=== PATIENT | female | born 1990 | race Caucasian/White ===

== ENCOUNTER → 2021-03-05 11:46 | Outpatient (CLI) | payer OTHER, MEDICAID, SELFPAY ==
[2021-03-05 10:48] VITALS: BMI 32.8
[2021-03-05 12:49] LABS: Absolute Neutrophil Count 8.2 X10^3/uL (2.0-7.7); Basophil# 0.03 X10^3/uL; Basophil% 0.3 % (0-1); Eosinophils% 0.9 % (0-5); Hematocrit 42.2 % (37-47); Hemoglobin 13.9 g/dL (12.0-15.0); Lymphocyte % 18.5 % (19-41); Mean Corp Hgb Conc 32.9 g/dL (32-36); Mean Corpuscular Hgb 29.8 pg (27.0-32.0); Mean Corpuscular Volume 90.6 fL (81-99); Mean Platelet Vol. 10.1 fl (6.2-12.0); Monocyte# 0.84 X10^3/uL; Monocyte% 7.4 % (0-10); NRBC Flagged by Analyzer 0 % (0-5); Neutrophil # 8.23 X10^3/uL (2.7-7.7); Neutrophil % 72.5 % (47-70); Platelet Count 284 K/mm3 (150-450); RBC Distribution Width CV 12.3 % (11.6-14.6); RBC Distribution Width SD 40.5 fl (35.1-43.9); Red Blood Count 4.66 M/mm3 (4.2-5.4); White Blood Count 11.3 K/mm3 (4.4-11.0)
[2021-03-05 12:58] LABS: NATERA MAILED SPECIMEN
[2021-03-05 13:07] LABS: Amphetamine Urine VISTA NEGATIVE (<1000 ng/mL); Barbiturate Urine VISTA NEGATIVE (< 200 ng/mL); Benzodiazepine Urine VISTA NEGATIVE (< 200 ng/mL); Cocaine Urine VISTA NEGATIVE (< 300 ng/mL); Ecstacy Urine VISTA NEGATIVE (< 500 ng/mL); Methadone Urine VISTA NEGATIVE (< 300 ng/mL); PCP Urine VISTA NEGATIVE (< 25 ng/mL); THC Urine VISTA NEGATIVE (< 50 ng/mL); Vista UDS pH Range 6
[2021-03-05 14:02] LABS: HIV - WCH Non-Reactive (Nonreactive); Hepatitis B Surface Antigen Non-Reactive (Nonreactive); Hepatitis C Antibody Non-Reactive (Nonreactive); Rubella IgG Reactive (Nonreactive); Syphilis Antibodies Non-reactive
[2021-03-05 15:50] LABS: Chlamydia Trachomatis by PCR Negative (Negative); Neisserai gonorrhoeae by PCR Negative (Negative); Probe Check PASS; Sample Adequacy Control PASS; Specimen Processing Control PASS
== END ==
PROVIDERS: Referring Provider Obstetrics & Gynecology; Visit Provider Obstetrics & Gynecology
DX: Z34.82 Encounter for supervision of other normal pregnancy, second trimester (principal); Z31.430 Encounter of female for testing for genetic disease carrier status for procreative management
CPT/HCPCS: 36415; 80307; 85025; 86703; 86762; 86780; 86803; 86850; 86900; 86901; 87086; 87088; 87340; 87491; 87591